=== PATIENT | female | born 1945 | race Caucasian/White ===

== ENCOUNTER 2016-10-27 11:34 | Outpatient (CLI) | payer MEDICARE | END 2016-10-27 11:35 | disposition home or self-care (01) | DX: Z12.31 Encounter for screening mammogram for malignant neoplasm of breast (principal) ==

== ENCOUNTER 2017-10-27 10:20 | Outpatient (CLI) | payer MEDICARE ==
--- NOTE | 2017-10-28 13:24 | Mammography Report ---
DIGITAL SCREENING MAMMOGRAM: 10/27/2017 CLINICAL INDICATION: A 72-year-old for screening. COMPARISON: 09/2016, 10/2015, 05/2014, 01/2012, 12/2010, 01/2010, 12/2009. TECHNIQUE: Routine CC and MLO projections were obtained of the breasts. FINDINGS: Scattered fibroglandular tissue is present within the breasts. There are no dominant masses, suspicious microcalcifications, or secondary signs of malignancy. In comparison to the previous studies, there are no significant changes. IMPRESSION: NO MAMMOGRAPHIC EVIDENCE OF MALIGNANCY. NO SIGNIFICANT INTERVAL CHANGES. RECOMMENDATION: Screening mammography is recommended annually. BIRADS CATEGORY 1 - NEGATIVE. STANDARD QUALIFYING STATEMENTS: 1. This examination was reviewed with the aid of Computed-Aided Detection (CAD). 2. A negative or benign imaging report should not delay biopsy if clinically suspicious findings are present. Consider surgical consultation if warranted. More than 5% of cancers are not identified by imaging. 3. Dense breasts may obscure an underlying neoplasm. TD: 10/28/2017 13:24
== END 2017-10-27 10:21 | disposition home or self-care (01) ==
LOC: DI.S 10:20
PROVIDERS: ATTEND Physician Assistant
DX: Z12.31 Encounter for screening mammogram for malignant neoplasm of breast (principal)
CPT/HCPCS: 77067

== ENCOUNTER 2018-02-14 07:06 | Day surgery (SDC) | payer MEDICARE ==
[2018-02-14] MEDS ORDERED: LACTATED RINGERS 1,000 ML IV ONE (07:53)
[2018-02-14] MEDS ORDERED: fentaNYL 250 MCG/5 ML VIAL IVP ONE (08:18)
[2018-02-14] MEDS ORDERED: MIDAZOLAM 2 MG/2 ML VIAL IVP ONE (08:18)
[2018-02-14 09:22] VITALS: BP 119/64
== END 2018-02-14 07:07 | disposition home or self-care (01) ==
LOC: SDS 07:06
PROVIDERS: ATTEND Surgery
PROC: 0DJD8ZZ Inspection of Lower Intestinal Tract, Via Natural or Artificial Opening Endoscopic (ICD-10-PCS; principal; 2018-02-14 08:15)
DX: Z12.11 Encounter for screening for malignant neoplasm of colon (principal); Z86.010 Personal history of colon polyps; K64.8 Other hemorrhoids; K57.30 Diverticulosis of large intestine without perforation or abscess without bleeding
CPT/HCPCS: G0105; J3010; J7120

== ENCOUNTER 2018-03-14 09:57 | Outpatient (CLI) | payer MEDICARE ==
--- NOTE | 2018-03-14 14:19 | DEXA Report ---
Procedure Date: 03/14/2018 Accession Number: [id number] / [id number] Procedure: DEX - Dexa Spine and/or Hip CPT Code: FULL RESULT: EXAM: Dexa Spine and/or Hip DATE: 03/14/2018 10:30 AM CLINICAL HISTORY: POST MENOPAUSAL TECHNIQUE: Dual energy x-ray absorptiometry (DXA) was performed on a [employer] System. Regions measured are the AP Spine, femoral neck, and if needed forearm. COMPARISON: None. In accordance with the International Society for Clinical Densitometry (ISCD) guidelines, data from previous exams may be reanalyzed using current recommendations and techniques. This is done to allow a more accurate basis for comparison with the current study. FINDINGS: The data for the lumbar spine is as follows: BMD (g/cm/cm) T-SCORE Z-SCORE REGION L1 0.909 -1.8 -0.2 L2 1.135 -0.5 1.1 L3 0.873 -2.7 -1.1 L4 1.022 -1.5 0.1 TOTAL 0.988 -1.6 0.0 NOTE: All evaluable vertebrae are used for classification The data for the hip is as follows: BMD (g/cm/cm) T-SCORE Z-SCORE REGION Neck 0.701 -2.4 -0.7 TOTAL 0.746 -2.1 -0.6 NOTE: The femoral neck or total proximal femur, whichever is lowest, is used for classification. IMPRESSION: THE WHO CLASSIFICATION BASED ON THE INTERNATIONAL REFERENCE STANDARD IS OSTEOPENIA. THE FRACTURE RISK IS INCREASED. RECOMMENDATION: Patients with diagnosis of osteoporosis or osteopenia should have regular bone mineral density assessment. For those eligible for Medicare, routine testing is allowed once every 2 years. Testing frequency can be increased for patients who have rapidly progressing disease or for those who are receiving medical therapy to restore bone mass. COMMENT: World Health Organization (WHO) definitions for osteoporosis and osteopenia: NORMAL BMD: T-score at -1.0 or higher, fracture risk is low OSTEOPENIA BMD: T-score between -1.0 and -2.5, fracture risk is increased. OSTEOPOROSIS BMD: T-score at -2.5 or lower, fracture risk is high. National Osteoporosis Foundation recommends: 1. Obtain adequate dietary calcium (at least 1200 mg per day) and vitamin D (400-800 international units per day). 2. Participate, as appropriate, in regular weightbearing and muscle-strengthening exercise. 3. Avoid tobacco use and reduce alcohol and caffeine intake. 4. For more detailed information see the website at www.NOF.org.
== END 2018-03-14 09:58 | disposition home or self-care (01) ==
LOC: DI 09:57
PROVIDERS: ATTEND Physician Assistant
DX: M85.89 Other specified disorders of bone density and structure, multiple sites (principal); Z78.0 Asymptomatic menopausal state
CPT/HCPCS: 77080

== ENCOUNTER 2018-10-31 15:33 | Outpatient (CLI) | payer MEDICARE ==
--- NOTE | 2018-11-01 08:41 | XRAY Report ---
Reason: PAIN OF LEFT HIP JOINT Procedure Date: 10/31/2018 Accession Number: [id number] / [id number] Procedure: XR - Hip w/Pelvis 2-3V LT CPT Code: FULL RESULT: EXAM: LEFT HIP RADIOGRAPHY EXAM DATE: 10/31/2018 03:41 PM. CLINICAL HISTORY: Pain of left hip joint. COMPARISON: XR HIP UNILATERAL MIN 2 VIEW 06/06/2008 4:45 PM. TECHNIQUE: 2 views. FINDINGS: Bones: There is a right total hip arthroplasty component in place; femoral stem is not fully included but there is no evidence of hardware complication. No acute fracture appreciated. Joints: Interval marked joint space loss in the left hip with near [id number] articulation, mild subchondral sclerosis and minor marginal osteophyte. Stable mild degenerative changes of the SI joints. Marked facet arthrosis noted of the L5-S1 facets. Soft Tissues: Normal. No soft tissue swelling. IMPRESSION: Left hip osteoarthritis with near complete loss of the weightbearing articular cartilage. No acute fracture appreciated. RADIA
== END 2018-10-31 15:34 | disposition home or self-care (01) ==
LOC: DI 15:33
PROVIDERS: ATTEND Physician Assistant
DX: M16.12 Unilateral primary osteoarthritis, left hip (principal)

== ENCOUNTER 2019-06-27 15:29 | Outpatient (CLI) | payer MEDICARE ==
--- NOTE | 2019-06-28 09:02 | DEXA Report ---
Reason: DISORDER OF BONE Procedure Date: 06/27/2019 Accession Number: [id number] / [id number] Procedure: DEX - Dexa Spine and/or Hip CPT Code: Final Report FULL RESULT: EXAM: Dexa Spine and/or Hip, Dexa Forearm DATE: 06/27/2019 4:19 PM CLINICAL HISTORY: DISORDER OF BONE TECHNIQUE: Dual energy x-ray absorptiometry (DXA) was performed on a [employer] System. Regions measured are the AP Spine, femoral neck, and if needed forearm. COMPARISON: 03/14/2018. In accordance with the International Society for Clinical Densitometry (ISCD) guidelines, data from previous exams may be reanalyzed using current recommendations and techniques. This is done to allow a more accurate basis for comparison with the current study. FINDINGS: The data for the lumbar spine is as follows: BMD (g/cm/cm) T-SCORE Z-SCORE REGION L1 0.941 -1.6 0.2 L2 1.060 -1.2 0.6 L3 0.904 -2.5 -0.7 L4 1.071 -1.1 0.7 TOTAL 1.000 -1.5 0.2 NOTE: All evaluable vertebrae are used for classification The data for the left forearm is as follows: BMD (g/cm/cm) T-SCORE Z-SCORE REGION 1/3 0.624 -2.9 -0.8 NOTE: The 33% radius of the nondominant forearm is used for classification. DXA RESULTS SUMMARY: Spine SCAN DATE AGE BMD CHANGE VS CHANGE VS PREVIOUS PREVIOUS % 7/27/2019 [age] 1[age]000 0.012 1.2 03/14/2018 [age] 0.988 * Denotes significant change at the 95% confidence level. Denotes dissimilar scan types or analysis methods. IMPRESSION: THE WHO CLASSIFICATION BASED ON THE INTERNATIONAL REFERENCE STANDARD IS OSTEOPOROSIS, REFERENCE LEFT FOREARM RESULTS. THE FRACTURE RISK IS HIGH. RECOMMENDATION: Patients with diagnosis of osteoporosis or osteopenia should have regular bone mineral density assessment. For those eligible for Medicare, routine testing is allowed once every 2 years. Testing frequency can be increased for patients who have rapidly progressing disease or for those who are receiving medical therapy to restore bone mass. COMMENT: World Health Organization (WHO) definitions for osteoporosis and osteopenia: NORMAL BMD: T-score at -1.0 or higher, fracture risk is low OSTEOPENIA BMD: T-score between -1.0 and -2.5, fracture risk is increased. OSTEOPOROSIS BMD: T-score at -2.5 or lower, fracture risk is high. National Osteoporosis Foundation recommends: 1. Obtain adequate dietary calcium (at least 1200 mg per day) and vitamin D (400-800 international units per day). 2. Participate, as appropriate, in regular weightbearing and muscle-strengthening exercise. 3. Avoid tobacco use and reduce alcohol and caffeine intake. 4. For more detailed information see the website at www.NOF.org.
== END 2019-06-27 15:30 | disposition home or self-care (01) ==
LOC: DI 15:29
PROVIDERS: ATTEND Physician Assistant
DX: M81.0 Age-related osteoporosis without current pathological fracture (principal)
CPT/HCPCS: 77080; 77081

== ENCOUNTER 2020-02-06 11:06 | Outpatient (CLI) | payer MEDICARE ==
[2020-02-06 15:14] LABS: ALBUMIN 4.6 g/dL (3.2-5.5); ALBUMIN/GLOBULIN RATIO 2.2 (1.0-2.2); BILIRUBIN,TOTAL 1.6 mg/dL (0.2-1.0); CALCIUM 9.1 mg/dL (8.5-10.3); CREATININE 0.7 mg/dL (0.4-1.0); TOTAL PROTEIN 6.7 g/dL (6.7-8.2)
[2020-02-06 15:54] LABS: HB2 TOTAL 14.9 g/dL; HEMOGLOBIN A1C 0.46 g/dL
== END 2020-02-06 11:07 | disposition home or self-care (01) ==
LOC: LAB.S 11:06
PROVIDERS: ATTEND Registered Nurse
DX: Z13.1 Encounter for screening for diabetes mellitus (principal); I10 Essential (primary) hypertension
CPT/HCPCS: 80053; 83036

== ENCOUNTER 2020-12-03 14:14 | Outpatient (CLI) | payer MEDICARE ==
--- NOTE | 2020-12-04 12:16 | Mammography Report ---
BILATERAL DIGITAL SCREENING MAMMOGRAM 3D/2D: 12/03/2020 CLINICAL: Routine screening. Comparison is made to exams dated: 10/27/2017 mammogram, 10/27/2016 mammogram, 10/03/2015 mammogram, and 05/28/2014 mammogram - [facility]. There are scattered fibroglandular elements in both breasts. No significant masses, calcifications, or other findings are seen in either breast. There has been no significant interval change. IMPRESSION: NEGATIVE There is no mammographic evidence of malignancy. A 1 year screening mammogram is recommended. This exam was interpreted at Station ID: [id number]. NOTE: For mammograms, a report in lay terms will be sent to the patient. Approximately 15% of breast malignancies will not be visualized mammographically. In the management of a palpable breast mass, a negative mammogram must not discourage biopsy of a clinically suspicious lesion. Electronically Signed By: Hunter Joseph M.D. aty/penrad:12/03/2020 17:24:21 ACR BI-RADS Category 1: Negative 3341F PARENCHYMAL PATTERN: (A) - The breast(s) demonstrate(s) scattered fibroglandular densities. BI-RADS CATEGORY: (1) - 1 RECOMMENDATION: (ANNUAL) - Recommend routine annual screening mammography. [id number] 1 year screening LATERALITY: (B)
== END 2020-12-03 14:15 | disposition home or self-care (01) ==
LOC: DI.S 14:14
DX: Z12.31 Encounter for screening mammogram for malignant neoplasm of breast (principal)

== ENCOUNTER 2020-12-10 12:53 | Outpatient (CLI) | payer MEDICARE ==
[2020-12-10 19:54] LABS: BASOPHILS % (AUTO) 0.4 %; EOSINOPHILS # (AUTO) 0.1 10^3/uL (0.0-0.7); EOSINOPHILS % (AUTO) 2.1 %; HCT - HEMATOCRIT 41.2 % (37.0-47.0); HGB - HEMOGLOBIN 13.1 g/dL (12.0-16.0); LYMPHOCYTES # (AUTO) 1.8 10^3/uL (1.5-3.5); LYMPHOCYTES % (AUTO) 26.8 %; MEAN CORPUSCULAR HEMOGLOBIN 31.6 pg (27.0-31.0); MEAN CORPUSCULAR HGB CONC 31.8 g/dL (32.0-36.0); MEAN CORPUSCULAR VOLUME 99.3 fL (81.0-99.0); MEAN PLATELET VOLUME 9.3 fL (7.9-10.8); MONOCYTES # (AUTO) 0.7 10^3/uL (0.0-1.0); MONOCYTES % (AUTO) 9.6 %; NEUTROPHILS # (AUTO) 4.1 10^3/uL (1.5-6.6); NEUTROPHILS % (AUTO) 59.8 %; PLT - PLATELET COUNT 299 10^3/uL (130-450); RED BLOOD COUNT 4.15 10^6/uL (4.20-5.40); RED CELL DISTRIBUTION WIDTH 12.9 % (12.0-15.0); WHITE BLOOD COUNT 6.8 x10^3/uL (4.8-10.8)
[2020-12-10 20:14] LABS: ALBUMIN 4.4 g/dL (3.2-5.5); ALBUMIN/GLOBULIN RATIO 1.7 (1.0-2.2); BILIRUBIN,TOTAL 1.4 mg/dL (0.2-1.0); CALCIUM 9.2 mg/dL (8.5-10.3); CREATININE 0.6 mg/dL (0.4-1.0); POTASSIUM 4.1 mmol/L (3.5-5.0)
[2020-12-12 12:50] LABS: HEPATITIS C ANTIBODY NON-REACTIVE (NON-REACTIVE)
== END 2020-12-10 12:54 | disposition home or self-care (01) ==
LOC: LAB.S 12:53
PROVIDERS: ATTEND Registered Nurse
DX: I10 Essential (primary) hypertension (principal); Z11.59 Encounter for screening for other viral diseases
CPT/HCPCS: 36415; 80053; 85025; 86803

== ENCOUNTER 2021-02-24 08:05 | Outpatient (CLI) | payer MEDICARE ==
--- NOTE | 2021-02-24 12:48 | MRI Report ---
PROCEDURE: Foot RT W/O INDICATIONS: BILATERAL FOOT AND ANKLE PAIN AND INSTABILITY TECHNIQUE: Noncontrast coronal and sagittal T1 spin echo and STIR; axial T1 spin echo and T2 fast spin echo with fat saturation through the right forefoot. COMPARISON: Right ankle MRI dated same day FINDINGS: Image quality: Excellent. Bones: No fractures lines or intra-osseous lesions. Severe first MTP joint degeneration with promi nent dorsal osteophyte formation. There is also full-thickness articular cartilage loss and associate d subchondral sclerosis and spurring. Soft tissues: The scanned muscles demonstrate normal overall bulk and internal signal. The dorsal francois bcutaneous soft tissue edema. There are also partially visualized presumed ganglion cysts and/or join t effusions at the midfoot which are better seen on the comparison ankle MRI dated same day. IMPRESSION: Severe first MTP joint degeneration, with prominent dorsal osteophyte formation. The raises the possi bility of hallux rigidus. Dorsal subcutaneous edema. Reviewed by: Jose Armando Lim MD on 02/24/2021 12:47 PM PDT Approved by: Jose Armando Lim MD on 02/24/2021 12:47 PM PDT Station ID: [id number]
--- NOTE | 2021-02-24 12:57 | MRI Report ---
PROCEDURE: Ankle LT W/O INDICATIONS: BILATERAL FOOT AND ANKLE PAIN AND INSTABILITY TECHNIQUE: Noncontrast Magnetic Resonance Imaging (MRI) of the ankle/hindfoot was performed utilizing the follow ing sequences: sagittal T1 spin echo, sagittal STIR or T2 weighted, axial PD fast spin echo, axial T2 fast spin echo with fat saturation, coronal T2 spin echo with fat saturation, and PD fast spin echo with fat saturation. COMPARISON: None. FINDINGS: Bones: No acute fracture. No suspicious osseous lesion. Scattered subchondral sclerosis and spurring . Severe tibiotalar joint degeneration with full-thickness cartilage loss, subchondral sclerosis and spurring. Joint effusions: Tibiotalar joint effusion is noted. Talar dome: No osteochondral lesion. Coalitions: No hindfoot coalition identified. Medial structures: Deltoid ligament: Intact. Spring ligament: Intact. Posterior tibialis: Intact. Mild tenosynovitis. Flexor digitorum longus: Intact. Mild tenosynovitis. Flexor hallucis longus: Intact. Posterior tibial neurovascular bundle: Normal appearance. Lateral structures: Anterior talofibular ligament: Not well visualized suspicious for chronic rupture/sprain. Calcaneofibular ligament: Also not well seen which may reflect chronic rupture or sprain. Posterior talofibular ligament: Intact. Anterior tibiofibular ligament: Intact. Posterior tibiofibular ligament: Intact. Peroneus longus: Intact. Mild tenosynovitis. Peroneus brevis: Intact. Mild tenosynovitis. Sinus tarsi: Normal appearance. Anterior structures: Dorsal talonavicular ligament: Intact. Tibialis anterior: Intact. Extensor hallucis longus: Intact. Extensor digitorum longus: Intact. Posterior and plantar structures: Achilles tendon: Intact. Plantar fascia: Intact. Muscles: No atrophy to suggest Leonard's neuropathy. IMPRESSION: Severe tibiotalar joint degeneration with dzyd-fk-ymcu appearance and full-thickness articular cartil age loss. Tibiotalar joint effusion Diffuse tenosynovitis involving the posterior tibialis, flexor digitorum longus, peroneus longus and brevis tendons. Chronic sprain/rupture of the anterior talofibular and calcaneofibular ligaments. Reviewed by: Jose Armando Lim MD on 02/24/2021 12:55 PM PDT Approved by: Jose Armando Lim MD on 02/24/2021 12:55 PM PDT Station ID: [id number]
--- NOTE | 2021-02-24 16:37 | MRI Report ---
PROCEDURE: Ankle RT W/O INDICATIONS: BILATERAL FOOT AND ANKLE PAIN AND INSTABILITY TECHNIQUE: Noncontrast sagittal T1 spin echo and T2 fast spin echo with fat saturation, axial proton density fas t spin echo and T2 fast spin echo with fat saturation, coronal T1 spin echo and T2 fast spin echo wit h fat saturation through the ankle/hindfoot. COMPARISON: None. FINDINGS: Image quality: Excellent. Bones and joints: Moderate osteoarthritic changes are noted in tibiotalar joint, subtalar joint, and visualized midfoot joints with joint space narrowing, mild subchondral edema and sclerosis more promi nent at tibiotalar joint. Small osteochondral lesions are seen scattered in medial weightbearing port ion of talar dome and in adjacent distal tibial plafond. There is moderate amount of tibiotalar joint effusion, no gross loose body. Well-defined plantar calcaneal enthesophyte is seen. Medial structures: The posterior tibialis, flexor digitorum longus, and flexor hallucis longus tendo ns are intact. The posterior tibial neurovascular bundle appears normal within the tarsal tunnel, wi thout extrinsic mass effect. The deep layer (anterior and posterior tibiotalar ligaments) and superf icial layer (tibionavicular, tibiospring, and tibiocalcaneal ligaments) of the deltoid ligament appea r normal. The spring ligament components (superomedial calcaneonavicular, medioplantar oblique calca neonavicular, and inferoplantar longitudinal ligaments) are intact. Lateral structures: The anterior talofibular, calcaneofibular, and posterior talofibular ligaments a ppear attenuated with intrasubstance T2 hyperintense signal suggestive of moderate sprain/partial thi ckness tear.. More superiorly, the anterior and posterior tibiofibular ligaments appear normal, as i s the intermalleolar ligament. The tibiofibular syndesmosis is normal in width at 2 mm or less. The peroneus longus and brevis tendons demonstrate normal location and morphology. Adjacent bony perone al tubercle and retrotrochlear prominence are normal in size. The sinus tarsi demonstrates normal fa tty signal, without edema, fibrosis, or cyst formation. Visualized sinus tarsi components (cervical ligament, interosseous talocalcaneal ligament, roots of the inferior extensor retinaculum) appear nor mal. Anterior structures: The tibialis anterior, and extensor hallucis longustendons appear intact. There is thickening of extensor digitorum longus tendon with moderate fluid distention of tendon sheath francois ggestive of tenosynovitis. Posterior and plantar structures: Achilles tendon is intact. Medial and lateral bands of the planta r fascia are of normal thickness. No abductor digiti quinti muscle atrophy to suggest Leonard neuropa thy. IMPRESSION: 1. Moderate ankle and midfoot joint osteoarthritic changes most prominent at tibiotalar joint as abov e. Suggestion of small osteochondral lesions involving medial talar dome and adjacent distal tibial p latform. Moderate joint effusion, no gross loose body. 2. Moderate grade sprain/partial thickness tear involving lateral ankle ligaments as above. No full-t hickness ligament rupture. Medial ankle ligaments are intact. 3. Suggestion of mild to moderate tenosynovitis involving extensor digitorum longus tendon. Rest of t he ankle tendons are grossly intact. Reviewed by: Pola Leon MD on 02/24/2021 4:36 PM PDT Approved by: Pola Leon MD on 02/24/2021 4:36 PM PDT Station ID: [id number]
--- NOTE | 2021-02-24 16:39 | MRI Report ---
PROCEDURE: Foot LT W/O INDICATIONS: BILATERAL FOOT AND ANKLE PAIN AND INSTABILITY TECHNIQUE: Noncontrast coronal and sagittal T1 spin echo and STIR; axial T1 spin echo and T2 fast spin echo with fat saturation through the left midfoot and forefoot. COMPARISON: None. FINDINGS: Image quality: Excellent. Bones: Moderate to severe osteoarthritic changes are noted throughout left midfoot and forefoot joint s most prominent involving first MTP joint with near complete loss of joint space and prominent dorsa l and inferior marginal osteophyte formation concerning for hallux limitus. No marrow edema. No fract ure or dislocation. No evidence of metatarsal stress fractures. Osteoarthritic changes also noted inv olving articulation between first metatarsal head and sesamoids. No suspicious intraosseous lesion. Soft tissues: The scanned muscles demonstrate normal overall bulk and internal signal. Subcutaneous tissues appear normal as well. No soft tissue masses are present. IMPRESSION: 1. Moderate to severe midfoot and forefoot joint osteoarthritis most prominent involving first MTP thong int with suggestion of hallux limitus as above. No fracture or dislocation. No evidence of metatarsal stress fracture. 2. Forefoot tendons and ligaments are grossly intact. Reviewed by: Pola Leon MD on 02/24/2021 4:38 PM PDT Approved by: Pola Leon MD on 02/24/2021 4:38 PM PDT Station ID: [id number]
== END 2021-02-24 08:06 | disposition home or self-care (01) ==
LOC: DI 08:05
PROVIDERS: ATTEND Podiatrist
DX: M25.571 Pain in right ankle and joints of right foot (principal); M25.371 Other instability, right ankle; M25.572 Pain in left ankle and joints of left foot; M25.372 Other instability, left ankle; M19.072 Primary osteoarthritis, left ankle and foot; M19.071 Primary osteoarthritis, right ankle and foot; S93.492A Sprain of other ligament of left ankle, initial encounter; S93.412A Sprain of calcaneofibular ligament of left ankle, initial encounter; M65.872 Other synovitis and tenosynovitis, left ankle and foot; S93.491A Sprain of other ligament of right ankle, initial encounter; S93.411A Sprain of calcaneofibular ligament of right ankle, initial encounter; S93.431A Sprain of tibiofibular ligament of right ankle, initial encounter

== ENCOUNTER 2021-04-14 14:49 | Outpatient (CLI) | payer MEDICARE ==
[2021-04-14 19:53] LABS: BASOPHILS % (AUTO) 0.5 %; EOSINOPHILS # (AUTO) 0.1 10^3/uL (0.0-0.7); EOSINOPHILS % (AUTO) 1.8 %; HCT - HEMATOCRIT 41.8 % (37.0-47.0); HGB - HEMOGLOBIN 13.3 g/dL (12.0-16.0); LYMPHOCYTES # (AUTO) 1.8 10^3/uL (1.5-3.5); LYMPHOCYTES % (AUTO) 23.5 %; MEAN CORPUSCULAR HEMOGLOBIN 31.2 pg (27.0-31.0); MEAN CORPUSCULAR HGB CONC 31.8 g/dL (32.0-36.0); MEAN CORPUSCULAR VOLUME 98.1 fL (81.0-99.0); MEAN PLATELET VOLUME 9.4 fL (7.9-10.8); MONOCYTES # (AUTO) 0.8 10^3/uL (0.0-1.0); MONOCYTES % (AUTO) 10.1 %; NEUTROPHILS # (AUTO) 4.8 10^3/uL (1.5-6.6); NEUTROPHILS % (AUTO) 63.3 %; PLT - PLATELET COUNT 272 10^3/uL (130-450); RED BLOOD COUNT 4.26 10^6/uL (4.20-5.40); RED CELL DISTRIBUTION WIDTH 13.4 % (12.0-15.0); WHITE BLOOD COUNT 7.7 x10^3/uL (4.8-10.8)
[2021-04-14 20:06] LABS: ALBUMIN 4.2 g/dL (3.2-5.5); ALBUMIN/GLOBULIN RATIO 1.7 (1.0-2.2); BILIRUBIN,TOTAL 1.3 mg/dL (0.2-1.0); CALCIUM 9.3 mg/dL (8.5-10.3); CREATININE 0.8 mg/dL (0.4-1.0); POTASSIUM 4.3 mmol/L (3.5-5.0); TOTAL PROTEIN 6.7 g/dL (6.7-8.2)
== END 2021-04-14 14:50 | disposition home or self-care (01) ==
LOC: LAB.S 14:49
PROVIDERS: ATTEND Orthopaedic Surgery
DX: Z01.812 Encounter for preprocedural laboratory examination (principal); R03.0 Elevated blood-pressure reading, without diagnosis of hypertension
CPT/HCPCS: 36415; 80053; 85025

== ENCOUNTER 2023-02-24 19:18 | Outpatient (CLI) | payer MEDICARE ==
--- NOTE | 2023-02-24 20:00 | Ultrasound Report ---
PROCEDURE: Duplex Ext Veins Right INDICATIONS: PAIN IN RIGHT LOWER LIMB TECHNIQUE: Real-time imaging, as well as color and pulse Doppler interrogation, were performed of the lower extr emity deep veins from the inguinal ligament to the popliteal fossa. COMPARISON: None. FINDINGS: The deep veins are normally compressible, and free of intraluminal thrombus. Color and pu lse Doppler demonstrate normal phasic intraluminal flow. There is normal augmentation response to di stal compression maneuver. Kelley's cyst is present measuring 6.6 x 1.5 x 2.8 cm. Fluid is also noted along the lateral knee measuring 3.8 x 0.6 x 1.6 cm. IMPRESSION: No deep venous thrombosis. Kelley's cyst. Reviewed by: Cristiana Jones MD on 02/24/2023 7:58 PM PDT Approved by: Cristiana Jones MD on 02/24/2023 7:58 PM PDT Station ID: [id number]
== END 2023-02-24 19:19 | disposition home or self-care (01) ==
LOC: DI 19:18
PROVIDERS: ATTEND Registered Nurse
DX: M79.604 Pain in right leg (principal); M71.21 Synovial cyst of popliteal space [Baker], right knee

== ENCOUNTER 2023-09-23 15:46 | Outpatient (CLI) | payer MEDICARE ==
--- NOTE | 2023-09-27 08:22 | CT Report ---
PROCEDURE: Lower Extremity LT WO INDICATIONS: DJD LEFT ANKLE TECHNIQUE: Noncontrast 3-mm axial sections acquired from the distal tibial shaft to the talar dome, with coronal and sagittal reformats. For radiation dose reduction, the following was used: automated exposure c ontrol, adjustment of mA and/or kV according to patient size. COMPARISON: Left ankle and foot MR 02/24/2021 FINDINGS: Image quality: Excellent. Bones: No acute osseous fracture or dislocation. Severe joint space narrowing is seen at the mortise joint that is more prominent at the lateral tibiotalar and talofibular articulations, with associate d tilting of the talus. Mild degenerative changes are seen in the subtalar joint. Severe degenerative changes are also seen at the 1st metatarsophalangeal joint and there are mild scattered degenerative changes in the interphalangeal joints of the toes. Soft tissues: Small tibiotalar effusion. The articular cartilages, ligaments, tendons are not well e valuated with CT. Fluid is seen along the distal extensor digitorum longus tendon that does not appea r significantly changed when compared to the MRI from 02/24/2021. The visualized musculature is normal in bulk. IMPRESSION: 1.Severe mortise joint osteoarthrosis that is more prominent along the lateral aspect of the joint wi th osseous remodeling and subsequent tilting of the talus. Findings appear mildly progressed when com pared to the MRI from 02/24/2021. 2.Severe 1st metatarsophalangeal joint osteoarthrosis. 3.Stable fluid collection along the extensor digitorum longus tendon compared to the prior MRI that m ay represent a ganglion cyst or tenosynovitis. Reviewed by: Jesu Rodriguez MD on 09/27/2023 8:20 AM PST Approved by: Jesu Rodriguez MD on 09/27/2023 8:20 AM PST Station ID: [id number]
== END 2023-09-23 15:47 | disposition home or self-care (01) ==
LOC: DI 15:46
PROVIDERS: ATTEND Orthopaedic Surgery
DX: M25.571 Pain in right ankle and joints of right foot (principal); G89.29 Other chronic pain; M19.072 Primary osteoarthritis, left ankle and foot; R93.6 Abnormal findings on diagnostic imaging of limbs; R93.89 Abnormal findings on diagnostic imaging of other specified body structures

== ENCOUNTER 2023-10-14 13:49 | Outpatient (CLI) | payer MEDICARE ==
--- NOTE | 2023-10-14 14:25 | XRAY Report ---
PROCEDURE: Lumbar Spine 2-3V INDICATIONS: LOW BACK PAIN TECHNIQUE: 3 views of the lumbar spine were acquired. COMPARISON: 05/28/2014 FINDINGS: Bones: 5 iem-iqt-jztrgeh vertebrae are present. Interval surgical fusion of L4-S1. Hardware appears intact. Bilateral hip arthroplasties are present. Grade 1 retrolisthesis of L3 on L4, L2 on L3 and L1 on L2, new from prior. Severe disc height loss at L1-2 and L2-3, progressed from prior. Stable T12 c ompression deformity. Similar grade 1 anterolisthesis of L5 on S1. Soft tissues: Overlying bowel gas pattern is normal. No suspicious soft tissue calcifications. IMPRESSION: No displaced fracture or traumatic subluxation. Interval posterior and interbody surgical fusion at L4-S1, without hardware complication. Progress degenerative disc disease at L1-L2 and L2-3. Stable T12 compression deformity without endplate retropulsion. Reviewed by: Solis Arnold MD on 10/14/2023 2:23 PM PDT Approved by: Solis Arnold MD on 10/14/2023 2:23 PM PDT Station ID: [id number]
== END 2023-10-14 13:50 | disposition home or self-care (01) ==
LOC: DI.S 13:49
DX: M54.40 Lumbago with sciatica, unspecified side (principal); M51.36 Other intervertebral disc degeneration, lumbar region; M48.54XA Collapsed vertebra, not elsewhere classified, thoracic region, initial encounter for fracture; Z98.1 Arthrodesis status

== ENCOUNTER 2024-03-27 14:01 | Outpatient (CLI) | payer MEDICARE | END 2024-03-27 14:02 | disposition home or self-care (01) | LOC: DI 14:01 | PROVIDERS: ATTEND Registered Nurse | DX: Z53.9 Procedure and treatment not carried out, unspecified reason (principal) ==